=== PATIENT | male | born 1970 | race Caucasian/White ===

== ENCOUNTER 2017-02-15 00:23 | Emergency (ER) | payer OTHER ==
[2017-02-15 00:23] VITALS: BMI 30.2
[2017-02-15 01:09] VITALS: BP 122/88; PULSE 90; RESP 18; TEMP 98.4; O2SAT 98
[2017-02-15] MEDS ORDERED: Albuterol-Ipratrop 3 mg / 0.5 (3 ml) UD IH STA (01:22)
--- NOTE | 2017-02-15 01:22 | ED PDOC ---
Arrival/HPI - General Chief Complaint: Cough, Cold, Congestion Time Seen by Provider: 02/15/17 01:16 Historian: Patient - History of Present Illness Narrative History of Present Illness (Text): 02/15/17 01:21 Giovanni Dimas is a 46 year old male, whose past medical history includes seasonal allergies, who presents to the Emergency department complaining of cold -like symptoms for 2 weeks. Patient states for the past 2 weeks, he has been experiencing intermittent fevers with associated sore throat, nasal congestion, and productive cough with sputum. Patient denies any chills, chest pain, shortness of breath, nausea, vomiting, diarrhea, urinary symptoms, back pain, neck pain, headache, dizziness, or any other complaints. Time/Duration: < month (2 weeks) Symptom Onset: Gradual Symptom Course: Unchanged, Intermittent Activities at Onset: Rest, Light Context: Home Past Medical History - Provider Review Nursing Documentation Reviewed: Yes - Past History Past History: Non-Contributing - Infectious Disease Hx of Infectious Diseases: None - Tetanus Immunization Tetanus Immunization: Up to Date - Past Medical History Past Medical History: No Previous - Cardiac Hx Cardiac Arrhythmia: No Hx Congestive Heart Failure: No Hx Hypertension: No Hx Internal Defibrillator: No Hx Mitral Valve Prolapse: No Hx Pacemaker: No Hx Peripheral Edema: No - Pulmonary Hx Asthma: No Hx Bronchitis: No Hx Chronic Obstructive Pulmonary Disease (COPD): No Hx Emphysema: No - Neurological Hx Transient Ischemic Attacks (TIA): No - HEENT Hx HEENT Disorder: No - Renal Hx Renal Failure: Yes (od on blood pressure meds and went into acute renal failure) - Endocrine/Metabolic Hx Hyperthyroidism: No Hx Hypothyroidism: No - Hematological/Oncological Hx Anemia: No Hx Cancer: No Hx Hepatitis A: No Hx Hepatitis B: No Hx Hepatitis C: No - Integumentary Hx Dermatological Disorder: No - Musculoskeletal/Rheumatological Hx Back Pain: Yes (chronic) - Gastrointestinal Hx Crohn's Disease: No Hx Diverticulitis: No Hx Gastroesophageal Reflux: No Hx Gastrointestinal Ulcer: No Hx Liver Failure: No - Genitourinary/Gynecological Hx Genitourinary Disorders: No - Psychiatric Hx Anxiety: Yes Hx Depression: Yes Hx Emotional Abuse: No Hx Substance Use: Yes (cocaine) - Surgical History Hx Appendectomy: Yes - Anesthesia Hx Anesthesia: Yes Hx Anesthesia Reactions: No Hx Malignant Hyperthermia: No - Suicidal Assessment Feels Threatened In Home Enviroment: No Family/Social History - Physician Review Nursing Documentation Reviewed: Yes Family/Social History: No Known Family HX Smoking Status: Current Some Days Smoker Hx Alcohol Use: Yes Hx Substance Use: Yes (cocaine) Substance used: CANNABIS, COCAINE Hx Substance Use Treatment: Yes Allergies/Home Meds Allergies/Adverse Reactions: Allergies No Known Allergies Allergy (Verified 08/28/15 01:56) Home Medications: Home Meds Medication Instructions Recorded Confirmed Naproxen [Naproxen] 500 mg PO Q8H PRN 07/30/15 08/29/15 Review of Systems - Physician Review All systems were reviewed & negative as marked: Yes - Review of Systems Constitutional: Fevers Eyes: Normal ENT: Sore Throat, Sinus Congestion Respiratory: Cough, Sputum Cardiovascular: Normal. absent: Chest Pain Gastrointestinal: Normal. absent: Abdominal Pain, Diarrhea, Nausea, Vomiting Genitourinary Male: Normal. absent: Dysuria, Frequency, Hematuria, Urinary Output Changes Musculoskeletal: Normal. absent: Back Pain, Neck Pain Skin: Normal. absent: Rash Neurological: Normal. absent: Headache, Dizziness Endocrine: Normal Hemo/Lymphatic: Normal Psychiatric: Normal Physical Exam Vital Signs Reviewed: Yes Vital Signs Temp Pulse Resp BP Pulse Ox 02/15/17 01:04 98.4 F 90 18 122/88 98 Temperature: Afebrile Blood Pressure: Normal Pulse: Regular Respiratory Rate: Normal Appearance: Positive for: Well-Appearing, Non-Toxic, Comfortable Pain Distress: None Mental Status: Positive for: Alert and Oriented X 3 - Systems Exam Head: Present: Atraumatic, Normocephalic Pupils: Present: PERRL Extroacular Muscles: Present: EOMI Conjunctiva: Present: Normal Mouth: Present: Moist Mucous Membranes Neck: Present: Normal Range of Motion Respiratory/Chest: Present: Wheezes. No: Respiratory Distress, Accessory Muscle Use Cardiovascular: Present: Regular Rate and Rhythm, Normal S1, S2. No: Murmurs Abdomen: Present: Normal Bowel Sounds. No: Tenderness, Distention, Peritoneal Signs Back: Present: Normal Inspection Upper Extremity: Present: Normal Inspection. No: Cyanosis, Edema Lower Extremity: Present: Normal Inspection. No: Edema Neurological: Present: GCS=15, CN II-XII Intact, Speech Normal Skin: Present: Warm, Dry, Normal Color. No: Rashes Psychiatric: Present: Alert, Oriented x 3, Normal Insight, Normal Concentration Medical Decision Making ED Course and Treatment: 02/15/17 01:21 Impression: 46 year old male complaining of intermittent fever with sore throat, nasal congestion, and productive cough x 2 weeks. Differential Diagnosis include but are not limited to: bronchitis Plan: -- Chest X-ray -- Duoneb -- Reassess and disposition Prior Visits: Notes and results from previous visits were reviewed. Progress Notes: 02/15/17 02:54 Reviewed radiology, Chest X-ray shows no active disease. 02/15/17 03:20 On re-evaluation, the patient feels better and is in no acute distress. I have discussed the results and plan with the patient, who expresses understanding. Patient in agreement with plan to discharged home. Patient is stable for discharge. Patient was instructed to follow up with physician/clinic in 1-2 days or return if symptoms worsen or new concerning symptoms arise. - RAD Interpretation Radiology Orders: 02/15/17 01:22 CHEST TWO VIEWS (PA/LAT) [RAD] Stat Purchaser: ED Physician - Medication Orders Current Medication Orders: Discontinued Medications Albuterol Sulfate (Albuterol 0.042% Inhal Miri (1.25mg/3ml) Ud) Confirm Administered Dose 1.25 mg .ROUTE .STK-MED ONE Stop: 02/15/17 01:27 Last Admin: 02/15/17 01:30 Dose: Albuterol/Ipratropium (Duoneb 3 Mg/0.5 Mg (3 Ml) Ud) 3 ml IH STAT STA Stop: 02/15/17 01:23 Last Admin: 02/15/17 01:29 Dose: 3 ml Clarithromycin (Biaxin Filmtab) 500 mg PO STAT STA PRN Reason: Protocol Stop: 02/15/17 02:58 Last Admin: 02/15/17 03:15 Dose: 500 mg - Dhirajibe Statement The provider has reviewed the documentation as recorded by the Jodie Garcia All medical record entries made by the Dhirajibelkin were at my direction and personally dictated by me. I have reviewed the chart and agree that the record accurately reflects my personal performance of the history, physical exam, medical decision making, and the department course for this patient. I have also personally directed, reviewed, and agree with the discharge instructions and disposition. Disposition/Present on Arrival - Present on Arrival Any Indicators Present on Arrival: No History of DVT/PE: No History of Uncontrolled Diabetes: No Urinary Catheter: No History of Decub. Ulcer: No History Surgical Site Infection Following: None - Disposition Have Diagnosis and Disposition been Completed?: Yes Diagnosis: Bronchitis, acute Disposition: HOME/ ROUTINE Disposition Time: 03:20 Condition: GOOD Discharge Instructions (ExitCare): Acute Bronchitis (ED) Prescriptions: Clarithromycin [Biaxin Filmtab] 500 mg PO BID #20 tab Albuterol HFA [Ventolin HFA] 1 puff IH QID #1 puff Referrals: Raj Gonzales MD [Primary Care Provider] - Follow up with primary
[2017-02-15] MEDS ORDERED: Albuterol 0.042% Inhal Sol (1.25 mg/3 mL) UD ONE (01:26)
--- NOTE | 2017-02-15 08:14 | RAD ---
HISTORY: Fall COMPARISON: No prior. TECHNIQUE: Chest PA and lateral FINDINGS: LUNGS: The lungs are well inflated and clear. PLEURA: No significant pleural effusion identified. No pneumothorax apparent. CARDIOVASCULAR: Normal. OSSEOUS STRUCTURES: No significant abnormalities. VISUALIZED UPPER ABDOMEN: Normal. OTHER FINDINGS: None. IMPRESSION: No active pulmonary disease.
== END 2017-02-15 03:19 | disposition home or self-care (01) ==
LOC: ED 00:23
DX: J20.9 Acute bronchitis, unspecified (principal)

== ENCOUNTER 2017-05-21 19:59 | Emergency (ER) | payer SELFPAY ==
[2017-05-21 20:09] VITALS: BMI 31.4
[2017-05-21 20:17] VITALS: BP 121/80; RESP 18
[2017-05-21] MEDS ORDERED: Albuterol-Ipratrop 3 mg / 0.5 (3 ml) UD IH STA (20:29)
--- NOTE | 2017-05-21 20:58 | ED PDOC ---
Arrival/HPI - General Chief Complaint: Shortness Of Breath Time Seen by Provider: 05/21/17 20:08 Historian: Patient - History of Present Illness Narrative History of Present Illness (Text): 05/21/17 21:03 Giovanni Dimas is a 47 year old male, whose past medical history includes seasonal allergies, bronchitis and bronchospasm, presents to the emergency department complaining of wheezing and slight shortness of breath for past couple of days. Also reports of occasional dry cough. Denies any fever, chills, headache, dizziness, chest pain, nausea, vomiting, diarrhea, abdominal pain, urinary symptoms, or any other complaints at this time. Time/Duration: < week Symptom Onset: Gradual Severity Level: Mild Activities at Onset: Light Past Medical History - Provider Review Nursing Documentation Reviewed: Yes - Past History Past History: Non-Contributing - Infectious Disease Hx of Infectious Diseases: None - Tetanus Immunization Tetanus Immunization: Up to Date - Past Medical History Past Medical History: No Previous - Cardiac Hx Cardiac Arrhythmia: No Hx Congestive Heart Failure: No Hx Hypertension: No Hx Internal Defibrillator: No Hx Mitral Valve Prolapse: No Hx Pacemaker: No Hx Peripheral Edema: No - Pulmonary Hx Asthma: No Hx Bronchitis: No Hx Chronic Obstructive Pulmonary Disease (COPD): No Hx Emphysema: No - Neurological Hx Transient Ischemic Attacks (TIA): No - HEENT Hx HEENT Disorder: No - Renal Hx Renal Failure: Yes (od on blood pressure meds and went into acute renal failure) - Endocrine/Metabolic Hx Hyperthyroidism: No Hx Hypothyroidism: No - Hematological/Oncological Hx Anemia: No Hx Cancer: No Hx Hepatitis A: No Hx Hepatitis B: No Hx Hepatitis C: No - Integumentary Hx Dermatological Disorder: No - Musculoskeletal/Rheumatological Hx Back Pain: Yes (chronic) - Gastrointestinal Hx Crohn's Disease: No Hx Diverticulitis: No Hx Gastroesophageal Reflux: No Hx Gastrointestinal Ulcer: No Hx Liver Failure: No - Genitourinary/Gynecological Hx Genitourinary Disorders: No - Psychiatric Hx Anxiety: Yes Hx Depression: Yes Hx Substance Use: Yes (cocaine) - Surgical History Hx Appendectomy: Yes Hx Tonsillectomy: Yes - Anesthesia Hx Anesthesia: Yes Hx Anesthesia Reactions: No Hx Malignant Hyperthermia: No - Suicidal Assessment Feels Threatened In Home Enviroment: No Family/Social History - Physician Review Nursing Documentation Reviewed: Yes Family/Social History: No Known Family HX Smoking Status: Current Some Days Smoker Hx Alcohol Use: No Hx Substance Use: Yes (cocaine) Substance used: CANNABIS, COCAINE Hx Substance Use Treatment: Yes Allergies/Home Meds Allergies/Adverse Reactions: Allergies No Known Allergies Allergy (Verified 08/28/15 01:56) Review of Systems - Physician Review All systems were reviewed & negative as marked: Yes - Review of Systems Constitutional: Normal. absent: Fatigue, Fevers Respiratory: SOB (slight shortness of breath ), Cough (occasional dry cough ). absent: Sputum Cardiovascular: absent: Chest Pain, Palpitations Gastrointestinal: absent: Abdominal Pain, Constipation, Diarrhea, Nausea, Vomiting Neurological: Normal. absent: Headache, Dizziness Physical Exam Vital Signs Reviewed: Yes Vital Signs Temp Pulse Resp BP Pulse Ox 05/21/17 22:41 98 F 82 18 95 05/21/17 19:59 98.4 F 84 18 121/80 90 L Temperature: Afebrile Blood Pressure: Normal Pulse: Regular Respiratory Rate: Normal Appearance: Positive for: Well-Appearing, Non-Toxic, Comfortable Pain Distress: None Mental Status: Positive for: Alert and Oriented X 3 - Systems Exam Head: Present: Atraumatic, Normocephalic Pupils: Present: PERRL Conjunctiva: Present: Normal Mouth: Present: Moist Mucous Membranes Respiratory/Chest: Present: Wheezes (b/l wheezing. ). No: Respiratory Distress , Accessory Muscle Use Cardiovascular: Present: Regular Rate and Rhythm, Normal S1, S2. No: Murmurs Abdomen: Present: Normal Bowel Sounds. No: Tenderness, Distention, Peritoneal Signs Upper Extremity: Present: Normal Inspection. No: Cyanosis, Edema Lower Extremity: Present: Normal Inspection. No: Edema Neurological: Present: GCS=15, CN II-XII Intact, Speech Normal, Motor Func Grossly Intact, Normal Sensory Function Skin: Present: Warm, Dry, Normal Color. No: Rashes Psychiatric: Present: Alert, Oriented x 3, Normal Insight, Normal Concentration Medical Decision Making ED Course and Treatment: 05/21/17 21:08 Impression: A 47 year old male who presents to the emergency department complaining of wheezing and slight shortness of breath for past couple of days. Plan: -- EKG -- Chest X-ray -- Duoneb -- prednisone -- Reassess and disposition Progress Notes: 05/21/17 21:08 EKG interpreted by me: NSR @ 82 bpm. normal axis. normal interval. 05/21/17 22:43 Patient states that symptoms have improved post treatment in the emergency room. Patient feels comfortable with the plan to be discharged home. Advised to follow up with PMD within few days and present to emergency department for new/ worsening symptoms. - RAD Interpretation Narrative RAD Interpretations (Text): 05/21/17 22:16 CXR- No acute process Radiology Orders: 05/21/17 20:57 CHEST PORTABLE [RAD] Stat Supervising Bailiff: ED Physician - Medication Orders Current Medication Orders: Discontinued Medications Albuterol/Ipratropium (Duoneb 3 Mg/0.5 Mg (3 Ml) Ud) 3 ml IH ONCE STA Stop: 05/21/17 20:30 Last Admin: 05/21/17 21:17 Dose: 3 ml Azithromycin (Zithromax) 500 mg PO ONCE STA PRN Reason: Protocol Stop: 05/21/17 22:23 Last Admin: 05/21/17 22:34 Dose: 500 mg Prednisone (Prednisone Tab) 60 mg PO ONCE STA Stop: 05/21/17 20:31 Last Admin: 05/21/17 21:17 Dose: 60 mg - Scribe Statement The provider has reviewed the documentation as recorded by the Jodie García Provider Attestation: Provider Scribe Attestation: All medical record entries made by the Jodie were at my direction and personally dictated by me. I have reviewed the chart and agree that the record accurately reflects my personal performance of the history, physical exam, medical decision making, and the department course for this patient. I have also personally directed, reviewed, and agree with the discharge instructions and disposition. Disposition/Present on Arrival - Present on Arrival Any Indicators Present on Arrival: No History of DVT/PE: No History of Uncontrolled Diabetes: No Urinary Catheter: No History of Decub. Ulcer: No History Surgical Site Infection Following: None - Disposition Have Diagnosis and Disposition been Completed?: Yes Diagnosis: Bronchitis, Bronchospasm Disposition: HOME/ ROUTINE Disposition Time: 22:23 Patient Plan: Discharge Condition: GOOD Discharge Instructions (ExitCare): Acute Bronchitis (ED), Bronchospasm (ED) Additional Instructions: Take meds as prescribed/no smoking/follow up with your doctor this week Prescriptions: predniSONE [Prednisone] 40 mg PO DAILY #10 tab Albuterol HFA [Ventolin HFA 90 mcg/actuation (8 g)] 2 puff IH [id number] PRN #1 puff PRN Reason: Wheezing Azithromycin [Zithromax] 250 mg PO DAILY #6 tab Referrals: Raj Gonzales MD [Primary Care Provider] - Follow up with primary Forms: [employer] (Salvadorean)
[2017-05-21 22:42] VITALS: PULSE 82; TEMP 98; O2SAT 95
--- NOTE | 2017-05-22 08:59 | RAD ---
HISTORY: cough COMPARISON: 02/15/2017 FINDINGS: LUNGS: No active pulmonary disease. PLEURA: No significant pleural effusion identified, no pneumothorax apparent. CARDIOVASCULAR: Normal. OSSEOUS STRUCTURES: No significant abnormalities. VISUALIZED UPPER ABDOMEN: Normal. OTHER FINDINGS: None. IMPRESSION: No active disease.
--- NOTE | 2017-05-22 13:01 | CARD ---
APPROVED REPORT EKG Measurement Heart [id number] <Conclusion> Normal sinus rhythm Normal ECG
== END 2017-05-21 22:43 | disposition home or self-care (01) ==
LOC: ED 19:59
DX: J20.9 Acute bronchitis, unspecified (principal); F17.210 Nicotine dependence, cigarettes, uncomplicated

== ENCOUNTER 2017-05-28 11:20 | Emergency (ER) | payer OTHER ==
[2017-05-28 11:20] VITALS: BMI 31.4
[2017-05-28 11:33] VITALS: TEMP 98.6
--- NOTE | 2017-05-28 11:58 | ED PDOC ---
Arrival/HPI - General Historian: Patient - History of Present Illness Time/Duration: < week <Bradford Davidson - Last Filed: 05/28/17 11:43> <RachelMario L - Last Filed: 05/28/17 12:49> - General Time Seen by Provider: 05/28/17 11:21 - History of Present Illness Narrative History of Present Illness (Text): 05/28/17 11:43 This is a 47 year old male with no significant PMHx who presents for complaint of dyspnea with productive cough of 2 days duration. Patient recently seen on 07/27 for the same complaints. Patient was discharged on Azithromycin which he did complete; however, he did not complete the course of Prednisone that was prescribed. Patient states that he improved with the medications but about 2 days ago, his symptoms returned. Patient complaining of rhinorrhea, post nasal drip, throat congestion, productive cough with green sputum, wheezing. Patient states that he was asthmatic as a child but was told it was due to his tonsils which he had removed. After tonsillectomy, his childhood respiratory symptoms resolved. Patient states that he experiences seasonal allergies and is an intermittent smoker. (Bradford Davidson) Past Medical History - Provider Review Nursing Documentation Reviewed: Yes - Past History Past History: Non-Contributing - Infectious Disease Hx of Infectious Diseases: None - Tetanus Immunization Tetanus Immunization: Up to Date - Past Medical History Past Medical History: No Previous - Cardiac Hx Cardiac Arrhythmia: No Hx Congestive Heart Failure: No Hx Hypertension: No Hx Internal Defibrillator: No Hx Mitral Valve Prolapse: No Hx Pacemaker: No Hx Peripheral Edema: No - Pulmonary Hx Asthma: No Hx Bronchitis: No Hx Chronic Obstructive Pulmonary Disease (COPD): No Hx Emphysema: No - Neurological Hx Transient Ischemic Attacks (TIA): No - HEENT Hx HEENT Disorder: No - Renal Hx Renal Failure: Yes (od on blood pressure meds and went into acute renal failure) - Endocrine/Metabolic Hx Hyperthyroidism: No Hx Hypothyroidism: No - Hematological/Oncological Hx Anemia: No Hx Cancer: No Hx Hepatitis A: No Hx Hepatitis B: No Hx Hepatitis C: No - Integumentary Hx Dermatological Disorder: No - Musculoskeletal/Rheumatological Hx Back Pain: Yes (chronic) - Gastrointestinal Hx Crohn's Disease: No Hx Diverticulitis: No Hx Gastroesophageal Reflux: No Hx Gastrointestinal Ulcer: No Hx Liver Failure: No - Genitourinary/Gynecological Hx Genitourinary Disorders: No - Psychiatric Hx Anxiety: Yes Hx Depression: Yes Hx Substance Use: Yes (cocaine) - Surgical History Hx Appendectomy: Yes Hx Tonsillectomy: Yes - Anesthesia Hx Anesthesia: Yes Hx Anesthesia Reactions: No Hx Malignant Hyperthermia: No - Suicidal Assessment Feels Threatened In Home Enviroment: No <Bardford Daivdson S - Last Filed: 05/28/17 11:43> Family/Social History - Physician Review Nursing Documentation Reviewed: Yes Family/Social History: No Known Family HX Smoking Status: Current Some Days Smoker Hx Alcohol Use: Yes Hx Substance Use: Yes (cocaine) Substance used: CANNABIS, COCAINE Hx Substance Use Treatment: Yes <LetyBradford S - Last Filed: 05/28/17 11:43> Allergies/Home Meds <Bradford Davidson S - Last Filed: 05/28/17 11:43> <Mario Ramos L - Last Filed: 05/28/17 12:49> Allergies/Adverse Reactions: Allergies No Known Allergies Allergy (Verified 05/28/17 11:32) Home Medications: Home Meds Medication Instructions Recorded Confirmed No Known Home Med 05/28/17 05/28/17 Review of Systems - Review of Systems Constitutional: Normal Eyes: Normal ENT: Rhinorrhea, Sinus Congestion, Other (post nasal drip) Respiratory: SOB, Cough (productive), Sputum (green), Wheezing Cardiovascular: Normal Gastrointestinal: Normal Genitourinary Male: Normal Musculoskeletal: Normal Skin: Normal Neurological: Normal Endocrine: Normal Hemo/Lymphatic: Normal Psychiatric: Normal <Bradford Davidson S - Last Filed: 05/28/17 11:43> Physical Exam Vital Signs Reviewed: Yes Temperature: Afebrile Blood Pressure: Normal Pulse: Regular Respiratory Rate: Normal Appearance: Positive for: Comfortable Pain Distress: None Mental Status: Positive for: Alert and Oriented X 3 - Systems Exam Head: Present: Atraumatic, Normocephalic Pupils: Present: PERRL Extroacular Muscles: Present: EOMI Conjunctiva: Present: Normal Ears: Present: NORMAL TM Mouth: Present: Moist Mucous Membranes Pharnyx: Present: ERYTHEMA. No: EXUDATE Nose (Internal): Present: Edematous (left nostrol), Boggy (right side) Neck: Present: Normal Range of Motion Respiratory/Chest: Present: Clear to Auscultation, Good Air Exchange. No: Accessory Muscle Use, Wheezes, Rales, Rhonchi Cardiovascular: Present: Regular Rate and Rhythm, Normal S1, S2 Abdomen: Present: Normal Bowel Sounds. No: Tenderness, Distention Upper Extremity: Present: Normal Inspection, NORMAL PULSES. No: Edema Lower Extremity: Present: Normal Inspection, NORMAL PULSES. No: Edema, CALF TENDERNESS Neurological: Present: GCS=15, CN II-XII Intact Skin: Present: Warm, Dry, Normal Color. No: Rashes Psychiatric: Present: Alert, Oriented x 3 <Bradford Davidson S - Last Filed: 05/28/17 11:43> Medical Decision Making <Bradford Davidson - Last Filed: 05/28/17 11:43> <Mario Ramos - Last Filed: 05/28/17 12:49> ED Course and Treatment: 05/28/17 12:10 Chest Xray PA/LAT views, Duoneb, Prednisone 60 mg PO, Robitussin w. codeine ( Bradford Davidson) 05/28/17 12:15 47 yo male c/o cough with associated symptoms as documented. I agree with the resident history and physical, assessment and plan as documented by resident. Signed out to Dr. Chu to f/u CXR, reevaluate and disposition . (Mario Ramos) - RAD Interpretation Radiology Orders: 05/28/17 11:58 CXR [CHEST TWO VIEWS (PA/LAT)] [RAD] Stat - Medication Orders Current Medication Orders: Discontinued Medications Albuterol/Ipratropium (Duoneb 3 Mg/0.5 Mg (3 Ml) Ud) 3 ml IH STAT STA Stop: 05/28/17 12:00 Last Admin: 05/28/17 12:17 Dose: 3 ml Guaifenesin/Codeine Phosphate (Robitussin W/Codeine) 5 ml PO STAT STA Stop: 05/28/17 12:00 Last Admin: 05/28/17 12:17 Dose: 5 ml Prednisone (Prednisone Tab) 60 mg PO STAT ONE Stop: 05/28/17 12:00 Last Admin: 05/28/17 12:17 Dose: 60 mg - PA / [employer]LLATE [employer] CLERK / Resident Statement /DO has reviewed & agrees with the documentation as recorded. / has examined the patient and agrees with the treatment plan. <Mario Ramos - Last Filed: 05/28/17 12:49> Disposition/Present on Arrival - Present on Arrival History of DVT/PE: No History of Uncontrolled Diabetes: No Urinary Catheter: No History of Decub. Ulcer: No History Surgical Site Infection Following: None <Bradford Davidson - Last Filed: 05/28/17 11:43> - Present on Arrival Any Indicators Present on Arrival: No - Disposition Have Diagnosis and Disposition been Completed?: No Disposition Time: 12:15 <Mario Ramos - Last Filed: 05/28/17 12:49> - Disposition Diagnosis: Cough Condition: FAIR
[2017-05-28] MEDS ORDERED: Albuterol-Ipratrop 3 mg / 0.5 (3 ml) UD IH STA (11:59)
[2017-05-28] MEDS ORDERED: guaiFENesin-Codeine 100-10mg/5ml Syrup (5 ml) UD PO STA (11:59)
--- NOTE | 2017-05-28 14:07 | RAD ---
HISTORY: shortness of breath. r/o pneumonia COMPARISON: 05/21/2017. TECHNIQUE: Chest PA and lateral FINDINGS: LUNGS: The lungs are well inflated. There is bibasilar atelectasis. No focal consolidation. PLEURA: No significant pleural effusion identified. No pneumothorax apparent. CARDIOVASCULAR: Normal. OSSEOUS STRUCTURES: No significant abnormalities. VISUALIZED UPPER ABDOMEN: Normal. OTHER FINDINGS: None. IMPRESSION: No active pulmonary disease.
[2017-05-28 14:18] VITALS: BP 102/61; PULSE 81; RESP 17; O2SAT 97
== END 2017-05-28 14:19 | disposition home or self-care (01) ==
LOC: ED 11:20
DX: R05 Cough (principal)

== ENCOUNTER 2017-07-31 14:15 | Emergency (ER) | payer SELFPAY ==
[2017-07-31 14:16] VITALS: BMI 31.4
--- NOTE | 2017-07-31 14:55 | ED PDOC ---
Arrival/HPI - General Chief Complaint: Back Pain Time Seen by Provider: 07/31/17 14:32 Historian: Patient - History of Present Illness Narrative History of Present Illness (Text): 07/31/17 14:46 47yo male present with complaint of lower back pain that radiates to his left lower leg x 5days. He notes chronic history of similar pain secondary to herniated disc. States he have not had pain recently until 5days ago. Pain is worse with any type of movement. denies trauma, focal weakness, abdominal pain, urinary/fecal incontinence, saddle anesthesia, any other complaint. Past Medical History - Provider Review Nursing Documentation Reviewed: Yes - Past History Past History: Non-Contributing - Infectious Disease Hx of Infectious Diseases: None - Tetanus Immunization Tetanus Immunization: Up to Date - Past Medical History Past Medical History: No Previous - Cardiac Hx Cardiac Arrhythmia: No Hx Congestive Heart Failure: No Hx Hypertension: No Hx Internal Defibrillator: No Hx Mitral Valve Prolapse: No Hx Pacemaker: No Hx Peripheral Edema: No - Pulmonary Hx Asthma: No Hx Bronchitis: No Hx Chronic Obstructive Pulmonary Disease (COPD): No Hx Emphysema: No - Neurological Hx Transient Ischemic Attacks (TIA): No - HEENT Hx HEENT Disorder: No - Renal Hx Renal Failure: Yes (od on blood pressure meds and went into acute renal failure) - Endocrine/Metabolic Hx Hyperthyroidism: No Hx Hypothyroidism: No - Hematological/Oncological Hx Anemia: No Hx Cancer: No Hx Hepatitis A: No Hx Hepatitis B: No Hx Hepatitis C: No - Integumentary Hx Dermatological Disorder: No - Musculoskeletal/Rheumatological Hx Back Pain: Yes (chronic) - Gastrointestinal Hx Crohn's Disease: No Hx Diverticulitis: No Hx Gastroesophageal Reflux: No Hx Gastrointestinal Ulcer: No Hx Liver Failure: No - Genitourinary/Gynecological Hx Genitourinary Disorders: No - Psychiatric Hx Anxiety: Yes Hx Depression: Yes Hx Substance Use: Yes (cocaine) - Surgical History Hx Appendectomy: Yes Hx Tonsillectomy: Yes - Anesthesia Hx Anesthesia: Yes Hx Anesthesia Reactions: No Hx Malignant Hyperthermia: No - Suicidal Assessment Feels Threatened In Home Enviroment: No Family/Social History - Physician Review Nursing Documentation Reviewed: Yes Family/Social History: Unknown Family HX Smoking Status: Current Some Days Smoker Hx Alcohol Use: Yes Hx Substance Use: Yes (cocaine) Substance used: CANNABIS, COCAINE Hx Substance Use Treatment: Yes Allergies/Home Meds Allergies/Adverse Reactions: Allergies No Known Allergies Allergy (Verified 05/28/17 11:32) Review of Systems - Physician Review All systems were reviewed & negative as marked: Yes - Review of Systems Constitutional: Normal Eyes: Normal ENT: Normal Respiratory: Normal Cardiovascular: Normal Gastrointestinal: Normal Genitourinary Male: Normal Musculoskeletal: Back Pain Skin: Normal Neurological: Normal Endocrine: Normal Hemo/Lymphatic: Normal Psychiatric: Normal Physical Exam Vital Signs Reviewed: Yes Vital Signs Temp Pulse Resp BP Pulse Ox 07/31/17 15:51 64 18 123/82 98 07/31/17 14:30 99.3 F 62 16 125/91 H 100 Temperature: Afebrile Blood Pressure: Normal Pulse: Regular Respiratory Rate: Normal Appearance: Positive for: Well-Appearing, Non-Toxic, Comfortable Pain Distress: None Mental Status: Positive for: Alert and Oriented X 3 - Systems Exam Head: Present: Atraumatic, Normocephalic Pupils: Present: PERRL Extroacular Muscles: Present: EOMI Conjunctiva: Present: Normal Mouth: Present: Moist Mucous Membranes Neck: Present: Normal Range of Motion Respiratory/Chest: Present: Clear to Auscultation, Good Air Exchange. No: Respiratory Distress, Accessory Muscle Use Cardiovascular: Present: Regular Rate and Rhythm, Normal S1, S2. No: Murmurs Abdomen: Present: Normal Bowel Sounds. No: Tenderness, Distention, Peritoneal Signs Back: Present: Paraspinal Tenderness (LEft side), Pain with Leg Raise (LEft leg) . No: Midline Tenderness Upper Extremity: Present: Normal Inspection. No: Cyanosis, Edema Lower Extremity: Present: Normal Inspection. No: Edema Neurological: Present: GCS=15, CN II-XII Intact, Speech Normal Skin: Present: Warm, Dry, Normal Color. No: Rashes Psychiatric: Present: Alert, Oriented x 3, Normal Insight, Normal Concentration Medical Decision Making ED Course and Treatment: 07/31/17 16:09 PT with history of chronic back pain, in ED for same complaint. He was ambulatory and have no focal neurological deficit. His pain improved in Ed with medication. No imaging is required secondary to his established back pain from herniated disc Rx of Naprosyn and baclofen will be given. He is referred to his PMD. - Medication Orders Current Medication Orders: Discontinued Medications Diazepam (Valium) 5 mg PO ONCE ONE PRN Reason: Protocol Stop: 07/31/17 14:46 Last Admin: 07/31/17 15:58 Dose: 5 mg Ketorolac Tromethamine (Toradol) 60 mg IM STAT STA Stop: 07/31/17 14:46 Last Admin: 07/31/17 15:59 Dose: 60 mg MAR Pain Assessment Document 07/31/17 15:59 MALLIKA (Rec: 07/31/17 15:59 MALLIKA [place] [id number]) Pain Reassessment Is this a pain reassessment? Yes Presence of Pain Presence of Pain Yes Pain Scale Used Pain Scale Used Numeric Location Upper or Lower Lower Pain Location Body Site Back Description Description Sharp Intensity of Pain at present 9 IM Administration Charges Document 07/31/17 15:59 MALLIKA (Rec: 07/31/17 15:59 [place] [id number]) Injection Site MAR Injection Site Left Deltoid Charges for Administration # of IM Administrations 1 Disposition/Present on Arrival - Present on Arrival Any Indicators Present on Arrival: No History of DVT/PE: No History of Uncontrolled Diabetes: No Urinary Catheter: No History of Decub. Ulcer: No History Surgical Site Infection Following: None - Disposition Have Diagnosis and Disposition been Completed?: Yes Diagnosis: Back pain Disposition: HOME/ ROUTINE Disposition Time: 16:10 Patient Plan: Discharge Condition: STABLE Discharge Instructions (ExitCare): Chronic Back Pain (ED) Additional Instructions: Follow up with your doctor Return to ED for any new symptoms Prescriptions: Baclofen [Lioresal] 10 mg PO TID #12 tab Naproxen [Naprosyn] 500 mg PO BID #20 tablet Forms: [employer] (Nigerien)
[2017-07-31 15:51] VITALS: PULSE 64; RESP 18
[2017-07-31 16:26] VITALS: BP 125/82; TEMP 98.9; O2SAT 95
== END 2017-07-31 16:27 | disposition home or self-care (01) ==
LOC: ED 14:15
DX: M54.5 Low back pain (principal)
CPT/HCPCS: 96372; 99282; J1885

== ENCOUNTER 2018-09-29 13:42 | Emergency (ER) | payer OTHER ==
[2018-09-29 14:04] VITALS: BMI 31.3
[2018-09-29 14:09] VITALS: RESP 18; TEMP 98.7
--- NOTE | 2018-09-29 14:38 | ED PDOC ---
Arrival/HPI - General Chief Complaint: Flu-like Symptoms Time Seen by Provider: 09/29/18 13:45 Historian: Patient - History of Present Illness Narrative History of Present Illness (Text): 09/29/18 14:35 48 year old male, whose past medical history includes seasonal allergies, bronchitis and bronchospasm, presents to the emergency department complaining of worsening nonproductive cough, chest pain when coughing, and runny nose for the past few weeks. Patient admits to having a post nasal drip that worsens when he sleeps. Patient denies any fever, chills, shortness of breath, nausea, vomiting, diarrhea, urinary symptoms, back pain, neck pain, headache, dizziness, or any other complaints. Time/Duration: Other (few weeks) Symptom Onset: Gradual Symptom Course: Worsening Activities at Onset: Light Context: Home Past Medical History - Provider Review Nursing Documentation Reviewed: Yes - Past History Past History: Non-Contributing - Infectious Disease Hx of Infectious Diseases: None - Tetanus Immunization Tetanus Immunization: Up to Date - Past Medical History Past Medical History: No Previous - Cardiac Hx Cardiac Arrhythmia: No Hx Congestive Heart Failure: No Hx Hypertension: No Hx Internal Defibrillator: No Hx Mitral Valve Prolapse: No Hx Pacemaker: No Hx Peripheral Edema: No - Pulmonary Hx Asthma: No Hx Bronchitis: No Hx Chronic Obstructive Pulmonary Disease (COPD): No Hx Emphysema: No - Neurological Hx Transient Ischemic Attacks (TIA): No - HEENT Hx HEENT Disorder: No - Renal Hx Renal Failure: Yes (od on blood pressure meds and went into acute renal failure) - Endocrine/Metabolic Hx Hyperthyroidism: No Hx Hypothyroidism: No - Hematological/Oncological Hx Anemia: No Hx Cancer: No Hx Hepatitis A: No Hx Hepatitis B: No Hx Hepatitis C: No - Integumentary Hx Dermatological Disorder: No - Musculoskeletal/Rheumatological Hx Back Pain: Yes (chronic) - Gastrointestinal Hx Crohn's Disease: No Hx Diverticulitis: No Hx Gastroesophageal Reflux: No Hx Gastrointestinal Ulcer: No Hx Liver Failure: No - Genitourinary/Gynecological Hx Genitourinary Disorders: No - Psychiatric Hx Anxiety: Yes Hx Depression: Yes Hx Substance Use: No (former) - Surgical History Hx Appendectomy: Yes Hx Tonsillectomy: Yes - Anesthesia Hx Anesthesia: Yes Hx Anesthesia Reactions: No Hx Malignant Hyperthermia: No - Suicidal Assessment Feels Threatened In Home Enviroment: No Family/Social History - Physician Review Nursing Documentation Reviewed: Yes Family/Social History: No Known Family HX Smoking Status: sometimes Hx Alcohol Use: Yes Frequency of alcohol use: Socially Hx Substance Use: No (former) Substance used: CANNABIS, COCAINE Hx Substance Use Treatment: Yes Allergies/Home Meds Allergies/Adverse Reactions: Allergies No Known Allergies Allergy (Verified 05/28/17 11:32) Review of Systems - Physician Review All systems were reviewed & negative as marked: Yes - Review of Systems Constitutional: absent: Fevers, Other (Chills) ENT: Rhinorrhea, Other (post nasal drip) Respiratory: Cough. absent: SOB Cardiovascular: Chest Pain (when coughing) Gastrointestinal: absent: Diarrhea, Nausea, Vomiting Genitourinary Male: absent: Dysuria, Frequency, Hematuria Musculoskeletal: absent: Back Pain, Neck Pain Physical Exam - Physical Exam Narrative Physical Exam (Text): Gen: VS reviewed, alert, well developed, well nourished, nontoxic, mild distress. ENT: Post nasal drip. normal pharynx. Eye: EOMI, PERRL. Neck: no JVD, supple, no adenopathy. CV: regular rate, regular rhythm, no rubs, no murmur, no gallops, S1, S2, pulses equal and strong. Pulm: no distress, clear to auscultation, no wheeze, no rhonchi, breath sounds equal, no rales. Skin: good color, no rash, no cyanosis. Psych: responds appropriately to questions, normal affect. Neuro: oriented x 3, CN2-12 intact grossly, motor intact, sensation intact. Vital Signs Reviewed: Yes Vital Signs Temp Pulse Resp BP Pulse Ox 09/29/18 14:08 98.7 F 94 H 18 120/84 96 Temperature: Afebrile Blood Pressure: Normal Pulse: Regular Respiratory Rate: Normal Medical Decision Making ED Course and Treatment: 09/29/18 14:38 Impression: 48 year old male presents complaining of worsening nonproductive cough, chest pain when coughing, and runny nose for the past few weeks. PE shows post nasal drip. Plan: -- Chest X-ray -- Reassess and disposition Prior Visits: Notes and results from previous visits were reviewed. Progress Notes: 09/29/18 15:25 On re-evaluation, patient in no acute distress. I have discussed the results and plan with the patient, who expresses understanding. Patient in agreement with plan to be discharged home. Patient is stable for discharge. Patient was instructed to follow up with physician or return if symptoms worsen or new concerning symptoms arise. - RAD Interpretation Narrative RAD Interpretations (Text): PROCEDURE:Chest X-ray DICTATED BY: Andrea Ornelas MD DATED SIGNED: 09/29/18 1521 IMPRESSION: No active disease Radiology Orders: 09/29/18 14:34 CXR [CHEST TWO VIEWS (PA/LAT)] [RAD] Stat Material Handler Floorperson: Radiologist - Scribe Statement The provider has reviewed the documentation as recorded by the Scribe Smiley Luciano Provider Scribe Attestation: All medical record entries made by the Scribe were at my direction and personally dictated by me. I have reviewed the chart and agree that the record accurately reflects my personal performance of the history, physical exam, medical decision making, and the department course for this patient. I have also personally directed, reviewed, and agree with the discharge instructions and disposition. Disposition/Present on Arrival - Present on Arrival Any Indicators Present on Arrival: No History of DVT/PE: No History of Uncontrolled Diabetes: No Urinary Catheter: No History of Decub. Ulcer: No History Surgical Site Infection Following: None - Disposition Have Diagnosis and Disposition been Completed?: Yes Diagnosis: Viral upper respiratory illness Disposition: HOME/ ROUTINE Disposition Time: 15:28 Patient Plan: Discharge Patient Problems: Current Active Problems Problem Status Onset Viral upper respiratory illness Acute Condition: STABLE Discharge Instructions (ExitCare): Viral Upper Respiratory Infection, Adult (DC) Additional Instructions: stay well hydrated (water). try claritin of nondrowsy antihistamine for the runny nose. try pseudophed for the postnasal drip. you could try honey with tea to help with the cough. see your primary care doctor for follow up. Prescriptions: Pseudoephedrine HCl [12 Hour Nasal Decongestant] 120 mg PO BID #14 tablet.er Referrals: [facility] [Outside] - Follow up with primary Deedee Cooney MD [Medical Doctor] - Follow up with primary Forms: [employer] (Maltese)
--- NOTE | 2018-09-29 15:24 | RAD ---
Date of service: 09/29/2018 HISTORY: cough, pneumonia COMPARISON: 05/28/2017 TECHNIQUE: Chest PA and lateral FINDINGS: LUNGS: No active pulmonary disease. PLEURA: No significant pleural effusion identified. No pneumothorax apparent. CARDIOVASCULAR: No aortic atherosclerotic calcification present. Normal cardiac size. No pulmonary vascular congestion. OSSEOUS STRUCTURES: No significant abnormalities. VISUALIZED UPPER ABDOMEN: Normal. OTHER FINDINGS: None. IMPRESSION: No active disease.
[2018-09-29 15:30] VITALS: BP 118/86; PULSE 69; O2SAT 97
== END 2018-09-29 15:30 | disposition home or self-care (01) ==
LOC: ED 13:42
DX: J06.9 Acute upper respiratory infection, unspecified (principal)